=== PATIENT | male | born 1965 | race Caucasian/White ===

== ENCOUNTER 2020-02-08 11:02 | Outpatient (REF) | payer OTHER, SELFPAY | END 2020-02-08 11:03 | disposition home or self-care (01) | LOC: HO.HAP 11:02 | PROVIDERS: PCP Internal Medicine; Referring Provider Internal Medicine; Visit Provider Internal Medicine | DX: Z13.89 Encounter for screening for other disorder (principal) | CPT/HCPCS: 92700 ==

== ENCOUNTER 2020-04-23 10:01 | Outpatient (REF) | payer OTHER, SELFPAY | END 2020-04-23 10:02 | disposition home or self-care (01) | LOC: HO.HAP 10:01 | PROVIDERS: Visit Provider Internal Medicine | DX: Z13.89 Encounter for screening for other disorder (principal) ==

== ENCOUNTER 2020-08-22 10:02 | Outpatient (REF) | payer OTHER, SELFPAY ==
--- NOTE | 2020-08-22 10:15 | MHC.AU.P13 ---
Hearing Instrument Problem Date of Visit: 08/22/20 Right Ear: Shipper Receiver: [employer] Model: AUDEO M50-312 Serial Number: [id number] Repair Warranty: 02/13/2022 Battery Size: 312 Color: SILVER ZULETA Social Work Instructor: 1M Type of Dome: SMALL VENTED Type of Wax Guard: TERESAUSHIELD Dispensed By: [facility] Date of Fittin11/24/2018 Follow-Up Summary: Right aid brought in with static - same issue as in Jan 2020. Cleaned and tried new glass decorator with no improvement. Sent to [employer] for repair. Recommendations: Recommendations: Patient will be contacted when materials have arrived. Signature: Provider: DOMINIQUE Mendoza
== END 2020-08-22 10:03 | disposition home or self-care (01) ==
LOC: HO.HAP 10:02
DX: Z13.89 Encounter for screening for other disorder (principal)

== ENCOUNTER 2020-09-10 10:31 | Outpatient (REF) | payer OTHER, SELFPAY | END 2020-09-10 10:32 | disposition home or self-care (01) | LOC: HO.HAP 10:31 | PROVIDERS: Visit Provider Internal Medicine | DX: Z46.1 Encounter for fitting and adjustment of hearing aid (principal); H90.41 Sensorineural hearing loss, unilateral, right ear, with unrestricted hearing on the contralateral side | CPT/HCPCS: 92592 ==

== ENCOUNTER 2022-07-29 11:54 | Outpatient (REF) | payer OTHER, SELFPAY | END 2022-07-29 11:55 | disposition home or self-care (01) | LOC: HO.HAP 11:54 | PROVIDERS: Visit Provider Internal Medicine | DX: Z46.1 Encounter for fitting and adjustment of hearing aid (principal); H90.3 Sensorineural hearing loss, bilateral | CPT/HCPCS: V5266 ==

== ENCOUNTER 2022-11-23 10:23 | Outpatient (REF) | payer OTHER, SELFPAY | END 2022-11-23 10:24 | disposition home or self-care (01) | LOC: HO.HAP 10:23 | PROVIDERS: Visit Provider Internal Medicine | DX: Z13.89 Encounter for screening for other disorder (principal) ==

== ENCOUNTER 2022-11-25 07:55 | Outpatient (REF) | payer OTHER, SELFPAY | END 2022-11-25 07:56 | disposition home or self-care (01) | LOC: HO.HAP 07:55 | PROVIDERS: Visit Provider Internal Medicine Medical Oncology | DX: Z13.89 Encounter for screening for other disorder (principal) ==

== ENCOUNTER 2023-02-05 10:15 | Outpatient (REF) | payer OTHER, SELFPAY ==
--- NOTE | 2023-02-05 11:48 | MHC.AU.HA1 ---
Hearing Aid Evaluation Date of Visit: 02/05/23 Historical Information: Description of Hearing: Right ear: mild sloping to moderately severe sensorineural hearing loss Left ear: normal sloping to moderate sensorineural hearing loss Summary: Yoseph recently lost his hearing aid. He states he is struggling to hear conversations around the house and having trouble hearing the TV. Discussed changes in technology since his last fitting; selected Oticon Real 2 miniRITE R in black. He does not have a smartphone that he will be pairing the aid with. Hearing Aid Prescription: Based on the individual?s shared listening needs, communication environments, dexterity, desire for connectivity, and personal preferences, the following prescription for amplification has been made: Right ear: Make, Model, Color: Oticon Real 2 miniRTE R Battery Size: Rechargeable Flower Buncher Or Picker/Slim Tube: 2 85 Type of Earmold/Dome/CShell/SlimTip: 8mm dbl wilfredo Plan of Care: Action Taken/Action Needed: Prior authorization to be requested Medical Clearance to be requested from PCP/ENT Hearing Instrument Fitting to be scheduled when materials arrive Primary Diagnosis: H90.3 Bilateral Sensorineural Hearing Loss Signature: Provider: Kailyn Mukherjee, CCC-A
--- NOTE | 2023-02-05 11:49 | MHC.AU.MED ---
Medical Clearance for Hearing Instrumentation Date: 02/05/23 Patient Name: Yoseph Cadet Date of : 1965 Primary Care Provider: Referring Provider: NETO Booker We have seen your patient on 02/05/23 and have determined that they are a candidate for amplification (See accompanying report). Specifically, they would benefit from: Hearing aid use in the right ear There is a statute that addresses Medical Evaluation Requirements prior to fitting a patient with a hearing aid. According to [place] statute 265 CMR:6.03(1), (a) General. Except as provided in 265 CMR 6.03(1)(b), a hearing aid technician shall not sell a hearing aid unless the prospective user has presented to the hearing aid technician a written statement signed by a licensed physician that states that the patient's hearing loss has been medically evaluated and the patient may be considered a candidate for a hearing aid. The medical evaluation must have taken place within the preceding six months. Please note: Due to the [place] Statute referenced above, we cannot accept a signature other than that of a licensed physician. CALTRANS EQUIPMENT OPERATOR and PA signatures cannot be accepted. I am in agreement with the above recommendation. There is no medical contraindication for hearing instrumentation. Physician Signature Date Physician Name (Printed)
== END 2023-02-05 10:16 | disposition home or self-care (01) ==
LOC: HO.SH 10:15
PROVIDERS: Visit Provider Physician Assistant Medical
DX: Z01.118 Encounter for examination of ears and hearing with other abnormal findings (principal); Z46.1 Encounter for fitting and adjustment of hearing aid; H90.3 Sensorineural hearing loss, bilateral
CPT/HCPCS: 92557; 92591

== ENCOUNTER 2023-03-10 15:04 | Outpatient (REF) | payer OTHER, SELFPAY ==
--- NOTE | 2023-03-11 08:05 | MHC.AU.HA2 ---
Hearing Instrument Fitting- Adult- Binaural Date of Visit: 03/10/23 Hearing Instruments Dispensed: Right Ear: Make, Model, Color, Serial Number: Oticon Real 2 miniRTE R Dionna Gannon S#[id number] Athlete Manager Repair Warranty: 03/26/2026 Ath[employer] Loss and Damage Warranty: 03/26/2026 [facility] Service Plan: Battery Size: Rechargeable Color Maker Formulator/Slim Tube: 2 85 Earmold/Dome/CShell/SlimTip: 8mm dbl villalobos Type of Wax Guard: Minifit Pro Wax Accessories/Assistive Technology: Oticon minirite cooler man [id number] Warranty end date 03/26/2026 Summary of Fitting: Yoseph visited for fitting of new Oticon Real 2 miniRITE R (right only, left was ordered by mistake and RFC). Programmed and verified to NAL-NL2 targets. Experienced hearing aid user; reviewed basics of cleaning, wax guard, and cooler man as his previous hearing aid used a regular battery. VC disabled. Does not have a smart phone to pair with hearing aid. Follow up in 3 weeks. Recommendations: Recommendations: A hearing instrument follow-up is recommended in 2-3 weeks. Diagnosis Code(s): Primary Diagnosis: H90.3 Bilateral Sensorineural Hearing Loss Signature: Provider: Kailyn Mukherjee, CCC-A
== END 2023-03-10 15:05 | disposition home or self-care (01) ==
LOC: HO.HAP 15:04
PROVIDERS: Visit Provider Internal Medicine
DX: Z46.1 Encounter for fitting and adjustment of hearing aid (principal); H90.3 Sensorineural hearing loss, bilateral
CPT/HCPCS: V5011; V5020; V5241; V5257